=== PATIENT | male | born 1945 | race Caucasian/White ===

== ENCOUNTER → 2017-05-27 | Outpatient (CLI) | payer OTHER, MEDICARE ==
[~2017-05-27] MED LIST: ALBUTEROL2.5 MG/0.5 INH; ASPIRIN LO-DOSE81 MG PO; ATORVASTATIN CA80 MG PO; BUSPIRONE HCL15 MG PO; CAPSAICIN60 GM; CLARITIN10 MG PO; CYMBALTA60 MG PO; DELTASONE2.5 MG PO; DESYREL50 MG PO; DIBUCAINE28 GM TOP; DIFLUCAN200 MG PO; FERROUS SULFAT325 MG PO; FLOMAX0.4 MG PO; HUMIBID LA (MU600 MG PO; IMDUR30 MG PO; LANTUS (IN100 UNIT/M SUB-Q; LASIX20 MG PO; LOPRESSOR50 MG PO; NEURONTIN300 MG PO; NORCO 7.5-3251 EACH PO; NOVOLOG FL100 UNIT/1; PEPTO BISMOL LIQ1 ML PO; PROAMATINE5 MG PO; PROSCAR5 MG PO; PROTONIX40 MG PO; RANEXA ER500 MG PO; REGLAN5 MG PO; SYMBICORT 16010.2 GM INH; SYSTANE GEL10 GM IOC; THERAGRAN-M1 TAB PO; TYLENOL325 MG PO; VITAMIN D-32000 UNI1 PO; ZANTAC (NON-FO150 MG PO; ZOFRAN ODT8 MG SL
[2017-05-27 13:35] LABS: CREATININE 2.6 mg/dL (0.6-1.3)
== END ==
LOC: GPOC 05-01 10:00 → GOPP 10:56 → GPOC 11:30
PROVIDERS: Internal Medicine Interventional Cardiology
DX: Z03.89 Encounter for observation for other suspected diseases and conditions ruled out (principal); Z53.8 Procedure and treatment not carried out for other reasons
CPT/HCPCS: J2001